=== PATIENT | male | born 1960 | race Caucasian/White ===

== ENCOUNTER → 2021-06-03 15:19 | Outpatient (CLI) | payer OTHER, SELFPAY ==
--- NOTE | 2021-06-03 15:23 | DI.RAD.S_ITS ---
PROCEDURE: XR RIBS RT MIN 3V W CXR 1V INDICATIONS: R lower rib pain post fall on rock TECHNIQUE: 2 views of the right ribs were acquired, along with a single view chest. COMPARISON: None. FINDINGS: Surgical changes and devices: None. Bones and chest wall: A marker is placed upon the area of clinical concern. Within this region, no displaced rib fracture or other significant rib abnormality can be seen. No rib fractures are seen elsewhere. No suspicious bony lesions. Age-appropriate bony degenerative changes are seen. Overlying soft tissues appear unremarkable. Lungs and pleura: No pleural effusions or pneumothorax. Lungs appear clear. Mediastinum: Mediastinal contours appear normal. Heart size is normal. IMPRESSION: Negative for displaced rib fracture. No pneumothorax. Dictated by: Shade Escobar M.D. on 06/03/2021 at 15:00 Approved by: Shade Escobar M.D. on 06/03/2021 at 15:01
== END ==
PROVIDERS: Referring Provider Nurse Practitioner; Visit Provider Nurse Practitioner
DX: R07.81 Pleurodynia (principal)
CPT/HCPCS: 71101